=== PATIENT | male | born 1990 | race Caucasian/White ===

== ENCOUNTER 2017-08-19 10:16 | Emergency (ER) | payer BC, OTHER ==
[2017-08-19 10:56] VITALS: BP 113/64
--- NOTE | 2017-08-19 12:36 | RAD ---
INDICATION: Left testicular pain. COMPARISON: There are no prior studies available for comparison. TECHNIQUE: Multiple real-time images of the testicles were obtained including color Doppler images and Doppler tracings. FINDINGS: The testicles are heterogeneous in echogenicity and normal in size and shape. The right testicle measured 4.7 x 2.3 x 3.0 cm and the left testicle measured 4.7 x 2.5 x 3.5 cm. No focal discrete intratesticular mass is seen. There is symmetric vascular flow within both testicles. The epididymides appear to be within normal limits. There is a small complex left hydrocele. IMPRESSION: 1. NO EVIDENCE FOR EPIDIDYMITIS OR TORSION. 2. SMALL COMPLEX LEFT HYDROCELE. 3. BILATERAL HETEROGENEOUS TESTICLES.
--- NOTE | 2017-08-19 12:54 | UC ---
Complaint Male HPI - HPI Summary HPI Summary: left testicular pain x 3 day, no known injury , painful to touch, mild swelling, no redness, no dysuria, no fever, no chills also c/o chest congestion, cough for 7 days - History of Current Complaint Chief Complaint: UCGeneralIllness Stated Complaint: FLU SYMPTOMS Time Seen by Provider: 08/19/17 10:59 Hx Obtained From: Patient Onset/Duration: Gradual Onset, Lasting Days - 3, Still Present Timing: Constant, Lasting Days - 3 Severity Initially: Moderate Severity Currently: Moderate Location: Testicle - left Character: Constant Pressure Aggravating Factor(s): Straining, Palpation Alleviating Factor(s): Nothing Associated Signs And Symptoms: Negative: Diaphoresis, Back Pain, Fever, Hematuria, Dysuria, Constipation, Blood in Stool, Rectal Pain, Appetite, Nausea , Vomiting(# Of Episodes =), Penile Swelling, Penile Discharge - Allergies/Home Medications Allergies/Adverse Reactions: Allergies Allergy/AdvReac Type Severity Reaction Status Date / Time No Known Allergies Allergy Verified 08/19/17 10:48 Home Medications: Home Medications Ibuprofen TAB* [Advil TAB*] 400 mg PO Q6H PRN 08/19/17 [History Confirmed ] PMH/Surg Hx/FS Hx/Imm Hx Previously Healthy: Yes - Surgical History Surgical History: Yes Surgery Procedure, Year, and Place: Left Knee Patella Repair. Left Third Finger Open Fracture Repair - Family History Known Family History: Negative: Diabetes - Social History Alcohol Use: Occasionally Substance Use Type: None Smoking Status (MU): Never Smoked Tobacco Review of Systems Constitutional: Negative Skin: Negative Eyes: Negative ENT: Sore Throat, Nasal Discharge Respiratory: Cough Cardiovascular: Negative Gastrointestinal: Negative Motor: Negative Is Patient Immunocompromised?: No All Other Systems Reviewed And Are Negative: Yes Physical Exam Triage Information Reviewed: Yes Appearance: Well-Appearing, No Pain Distress, Well-Nourished Vital Signs: Initial Vital Signs Temp 97.9 F 08/19/17 10:49 Pulse 75 08/19/17 10:49 Resp 16 08/19/17 10:49 BP 113/64 08/19/17 10:49 Pulse Ox 100 08/19/17 10:49 Vital Signs Reviewed: Yes Eyes: Positive: Conjunctiva Clear ENT: Positive: Normal ENT inspection, Hearing grossly normal, Pharynx normal Neck: Positive: Supple, Nontender, No Lymphadenopathy Respiratory: Positive: Chest non-tender, Lungs clear, Normal breath sounds Cardiovascular: Positive: RRR, No Murmur, Pulses Normal Abdominal Exam: Normal Abdomen Description: Positive: Nontender, Soft. Negative: No Organomegaly, Bruit, CVA Tenderness (R), CVA Tenderness (L), Distended, Guarding Bowel Sounds: Positive: Present Musculoskeletal Exam: Normal Skin Exam: Normal UC Physical Exam Vital Signs On Initial Exam: Initial Vitals Temp Pulse Resp BP Pulse Ox 97.9 F 75 16 113/64 100 08/19/17 10:49 08/19/17 10:49 08/19/17 10:49 08/19/17 10:49 08/19/17 10:49 - Genitalia Exam Male Genitalia: Circumcised Male Genitalia Cont.: Left: Testicles Tender, Testicles With Swelling, Bilateral : Testicles Descended Complaint Male Course/Dx - Differential Dx/Diagnosis Provider Diagnoses: left testicular pain. uri Discharge - Discharge Plan Condition: Stable Disposition: HOME Prescriptions: Ciprofloxacin TAB* [Cipro 500 MG TAB*] 500 mg PO BID #20 tab Patient Education Materials: Epididymitis (ED), Upper Respiratory Infection (ED ) Additional Instructions: follow up with your pcp in one week , sooner if getting worse
== END 2017-08-19 12:50 | disposition home or self-care (01) ==
LOC: UCCORT 10:16
DX: N50.812 Left testicular pain (principal); J06.9 Acute upper respiratory infection, unspecified
CPT/HCPCS: 76870; 99212; G0463

== ENCOUNTER 2018-12-01 10:22 | Emergency (ER) | payer BC ==
[2018-12-01 11:06] VITALS: BP 113/62
[2018-12-01] MEDS ORDERED: Albuterol 2.5 MG/3 ML NEB.SOL* (0.083%) INH ONE (11:20)
--- NOTE | 2018-12-01 11:21 | UC ---
UC General HPI - HPI Summary HPI Summary: DAY 3 OF COUGH, CONGESTION, FEVER, CHILLS, HEADACHE AND BODY ACHES. + AGGARWAL. NO ASTHMA. - History of Current Complaint Chief Complaint: UCGeneralIllness Stated Complaint: COUGH,BODY ACHES,FEVER Time Seen by Provider: 12/01/18 11:14 Hx Obtained From: Patient Timing: Constant Pain Intensity: 0 Associated Signs & Symptoms: Negative: Chest Pain - Allergy/Home Medications Allergies/Adverse Reactions: Allergies Allergy/AdvReac Type Severity Reaction Status Date / Time No Known Allergies Allergy Verified 12/01/18 11:01 Home Medications: Home Medications guaiFENesin [Mucinex] 600 mg PO ONCE 12/01/18 [History Confirmed 12/01/18] PMH/Surg Hx/FS Hx/Imm Hx Previously Healthy: Yes - Surgical History Surgical History: Yes Surgery Procedure, Year, and Place: Left Knee Patella Repair. Left Third Finger Open Fracture Repair - Family History Known Family History: Negative: Diabetes - Social History Occupation: Employed Full-time Alcohol Use: Occasionally Substance Use Type: None Smoking Status (MU): Never Smoked Tobacco Type: Smokeless Tobacco Amount Used/How Often: 1 can per day Review of Systems All Other Systems Reviewed And Are Negative: Yes Constitutional: Positive: Fever, Chills Skin: Positive: Negative Eyes: Positive: Negative ENT: Positive: Negative Respiratory: Positive: Shortness Of Breath, Cough Cardiovascular: Positive: Negative Gastrointestinal: Positive: Negative Genitourinary: Positive: Negative Motor: Positive: Negative Neurovascular: Positive: Negative Musculoskeletal: Positive: Myalgia Neurological: Positive: Headache Psychological: Positive: Negative Is Patient Immunocompromised?: No Physical Exam Triage Information Reviewed: Yes Appearance: Well-Appearing Vital Signs: Initial Vital Signs Temp 98.5 F 12/01/18 11:01 Pulse 77 12/01/18 11:01 Resp 14 12/01/18 11:01 BP 113/62 12/01/18 11:01 Pulse Ox 100 12/01/18 11:01 Vital Signs Reviewed: Yes Eyes: Positive: Conjunctiva Clear ENT: Positive: Pharynx normal, TMs normal. Negative: Nasal congestion, Nasal drainage Neck: Positive: Supple, Nontender, No Lymphadenopathy Respiratory: Positive: No respiratory distress, Decreased breath sounds Cardiovascular: Positive: RRR, No Murmur Abdomen Description: Positive: Nontender, No Organomegaly, Soft Bowel Sounds: Positive: Present Musculoskeletal: Positive: ROM Intact Neurological: Positive: Alert Psychological: Positive: Age Appropriate Behavior Skin Exam: Normal Skin: Negative: Rashes Diagnostics - Laboratory Diagnostic Studies Completed/Ordered: rapid flu=negative - Radiology No standard instances Radiology Interpretation Completed By: Radiologist - CXR=IMPRESSION: NO EVIDENCE FOR ACTIVE CARDIOPULMONARY DISEASE. Re-Evaluation - Re-Evaluation First Eval Re-Evaluation Time: 12:03 Change: Improved - MUCH BETTER AERATION Course/Dx - Differential Dx - Multi-Symptom Differential Diagnoses: Other - influenza, bronchitis, pneumonia - Diagnoses Provider Diagnosis: Bronchitis Discharge - Sign-Out/Discharge Documenting (check all that apply): Patient Departure All imaging exams completed and their final reports reviewed: Yes - Discharge Plan Condition: Stable Disposition: HOME Prescriptions: Albuterol HFA INHALER* [Ventolin HFA Inhaler*] 2 puff INH Q6H #1 mdi Patient Education Materials: Acute Bronchitis (ED) Referrals: JLUIS Potts [Medical Doctor] - 5 Days - Billing Disposition and Condition Condition: STABLE Disposition: Home
[2018-12-01 11:36] LABS: Influenza A Molecular NEGATIVE (Negative); Influenza B Molecular NEGATIVE (Negative)
== END 2018-12-01 12:09 | disposition home or self-care (01) ==
LOC: UCCORT 10:22
DX: J40 Bronchitis, not specified as acute or chronic (principal); R09.81 Nasal congestion; R51 Headache; M79.10 Myalgia, unspecified site
CPT/HCPCS: 71046; 99212; G0463